=== PATIENT | female | born 1990 | race Caucasian/White ===

== ENCOUNTER 2018-11-12 17:38 | Emergency (ER) | payer MEDICAID ==
[~2018-11-12] VITALS: Ht 165.1 cm; Wt 141.1 kg
[2018-11-12 17:48] VITALS: BP 148/76; Ht 165.1 cm; Wt 141.1 kg
== END 2018-11-12 18:46 | disposition home or self-care (01) ==
LOC: ED 17:38
DX: L23.9 Allergic contact dermatitis, unspecified cause (principal)
CPT/HCPCS: J7512